=== PATIENT | female | born 1965 | race Caucasian/White ===

== ENCOUNTER 2021-05-26 18:39 | Emergency (ER) | payer OTHER ==
[~2021-05-26] VITALS: Ht 167.6 cm; Wt 74.8 kg
[2021-05-26 18:41] VITALS: BP 159/82
[2021-05-26 20:51] LABS: BASOPHILS % (AUTO) 0.4 % (0.0-2.0); EOSINOPHILS # (AUTO) 0.4 K/uL (0-0.4); EOSINOPHILS % (AUTO) 4.2 % (0.0-4.0); HEMATOCRIT 38.2 % (36-48); HEMOGLOBIN 12.5 g/dL (12.0-16.0); LYMPHOCYTES % (AUTO) 29.5 % (20.5-51.1); MEAN CORPUSCULAR HEMOGLOBIN 29 pg (27-31); MEAN CORPUSCULAR HGB CONC 33 g/dL (33-37); MEAN CORPUSCULAR VOLUME 89.1 fL (80-94); MONOCYTES # (AUTO) 0.6 K/uL (0.8-1.0); MONOCYTES % (AUTO) 5.4 % (1.7-9.3); NEUTROPHILS # (AUTO) 6.3 K/uL (1.8-7.7); NEUTROPHILS % (AUTO) 60.5 % (42.2-75.2); PLATELET COUNT (AUTO) 272 K/uL (140-450); RED BLOOD CELL COUNT(AUTO) 4.28 MIL/uL (4.20-5.40); RED CELL DISTRIBUTION WIDTH 13.2 % (11.6-13.7); WHITE BLOOD COUNT (AUTO) 10.3 K/uL (4.8-10.8)
[2021-05-26 21:09] LABS: ANION GAP 7.7 (8-16); CARBON DIOXIDE 32.5 mmol/L (21-32); CREATININE 0.7 mg/dL (0.6-1.3); POTASSIUM 4.2 mmol/L (3.5-5.1); TOTAL BILIRUBIN 0.4 mg/dL (0.0-1.0)
--- NOTE | 2021-05-26 21:45 | NUR ---
d/c with [facility]. d/c education given. opportunityto ask questions given and answered. no rx given.
== END 2021-05-26 21:48 | disposition home or self-care (01) ==
LOC: MED 18:39
DX: R07.9 Chest pain, unspecified (principal); F41.9 Anxiety disorder, unspecified; R14.0 Abdominal distension (gaseous); J45.909 Unspecified asthma, uncomplicated
CPT/HCPCS: 36415; 74022; 80053; 84484; 85025; 93005; 99285